=== PATIENT | male | born 1970 | race Asian ===

== ENCOUNTER → 2020-01-19 16:29 | Outpatient (BNVA) | payer OTHER, SELFPAY | PROVIDERS: Visit Provider Nurse Practitioner | DX: Z11.59 Encounter for screening for other viral diseases (principal) | CPT/HCPCS: 87635 ==

== ENCOUNTER → 2020-11-30 10:54 | Outpatient (BNVA) | payer OTHER, SELFPAY | PROVIDERS: Visit Provider Internal Medicine Cardiovascular Disease | DX: R07.89 Other chest pain (principal); R06.02 Shortness of breath; E78.5 Hyperlipidemia, unspecified; R07.9 Chest pain, unspecified | CPT/HCPCS: 80061 ==

== ENCOUNTER 2020-12-28 06:33 | Outpatient (CLI) | payer OTHER, SELFPAY ==
--- NOTE | 2020-12-28 06:50 | ECG_ITS ---
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 Interpretive Statements NAME OF STUDY: EXERCISE SESTAMIBI STRESS TEST INDICATION: Chest Pain, PROCEDURE: The baseline electrocardiogram showed normal sinus rhythm with normal ST-Ts. At the baseline, the patient's blood pressure was 129/75 mm Hg with a heart rate of 45. The patient exercised for 14 minutes and 17 seconds on a standard [place] protocol. Patient attained a maximum heart rate of 164 beats per minute(97% of the maximum predicted heart rate) with a blood pressure at the peak exercise of 192/79 mm Hg. The EKG at the peak exercise revealed [address]ressions in lead II, III, aVF and V5 to V6. Patient did not have any chest pain or any significant arrhythmis with the exercise Sestamibi was injected 1 minute prior to the peak exercise During the recovery phase, there were no new changes. Blood pressure at the end of the recovery phase was 134/84 mm Hg with a heart rate of 89 per minute. CONCLUSION: 1. Abnormal EKG response to treadmill exercise, suggesting inferolateral ischemia. 2. No exercise-induced chest pain or cardiac arrhythmia. Hypertensive response to exercise 3. Good exercise tolerance, attained a maximum of 17.2 METs 4. Sestamibi/Sestamibi perfusion results pending; see separate report. Electronically Signed On 01-06-2021 8:07:08 CDT by Nichole Bernal M.D. [id number]
--- NOTE | 2020-12-28 06:50 | NMCV_ITS ---
NM jasmin perf SPECT r/s* [id number] Sergio Leija Age: 50 Gender: M : 1970 Exam Date: 12/28/2020 07:57 Ordering Phys: Nichole Bernal MD ([email or web address]) Technologist: OLIVERIO Rodriguez Exam Location: [facility] Indications: SHORTNESS OF BREATH STRESS TEST [facility] IMAGE PROTOCOL Rest/Stress 1 Exercise Day Radiopharmaceutical Dose (mCi) Administration Site Administered by Rest: Tc-99m 10.8 IV OLIVERIO Lundberg Sestamibi Stress:Tc-99m 32.8 IV OLIVERIO Lundberg Sestamibi Rest: 28-Dec-2020 60 Discovery 630 Stress: 28-Dec-2020 15 Discovery 630 Radiopharmaceutical was injected at 94 % maximum heart rate. Images obtained in supine and prone position. SPECT RESULTS Technical Quality: Excellent Raw Data Analysis: Normal Image Corrections: No attenuation or motion correction applied Summed Stress Score: 0 Summed Rest Score: 2 Summed Difference Score: 0 PERFUSION FINDINGS Areas of slightly decreased tracer uptake were noted in the anterior wall and inferior wall regions with no reversibility FUNCTIONAL RESULTS (calculated via Gated SPECT) Stress Image LV EF (%): 72 Stress EDV (mL):74 TID: 0.77 Stress ESV (mL):21 FUNCTIONAL FINDINGS: Segmental wall motion analysis revealing no gross wall motion normalities IMPRESSIONS 1. Myocardial perfusion imaging revealing small areas of slightly decreased persistent tracer uptake in the anterior wall and inferior wall regions, suggestive of myocardial scarring versus attenuation artifacts. 2. Normal LV ejection fraction of 72%. 3. LV wall motion analysis revealing no gross wall motion normalities. 4. Normal LV volume. No significant coronary ischemia, based on the above findings Dr Nichole Bernal MD FACC (Electronically Signed) Final Date: 28 December 2020 23:11 S
[2020-12-28 06:52] VITALS: BMI 25.0
[2020-12-28 10:22] VITALS: BP 134/84; PULSE 90
== END 2020-12-28 06:34 | disposition home or self-care (01) ==
LOC: RAD 06:35 → CDL 06:50
PROVIDERS: Visit Provider Internal Medicine Cardiovascular Disease
DX: R07.9 Chest pain, unspecified (principal); R06.02 Shortness of breath
CPT/HCPCS: 78452; 93017; A9500

== ENCOUNTER → 2021-10-12 10:35 | Outpatient (BNVA) | payer MEDICAID, SELFPAY | PROVIDERS: Visit Provider Internal Medicine Cardiovascular Disease | DX: I25.118 Atherosclerotic heart disease of native coronary artery with other forms of angina pectoris (principal); R03.0 Elevated blood-pressure reading, without diagnosis of hypertension; E78.5 Hyperlipidemia, unspecified | CPT/HCPCS: 99214 ==

== ENCOUNTER 2021-11-01 08:07 | Outpatient (CLI) | payer OTHER, SELFPAY ==
[2021-11-01 08:44] LABS: Chol HDL Ratio 3.12 mg/dL (1.0-5.00); Cholesterol 159 mg/dL (0-200); HDL Cholesterol 51 mg/dL (60-100); LDL Cholesterol Calculated 82 mg/dL (50-129); LDL HDL Ratio 1.61 RATIO (0.00-3.22); Triglycerides 132 mg/dL (0-150)
== END 2021-11-01 08:08 | disposition home or self-care (01) ==
LOC: LAB 08:10
PROVIDERS: Visit Provider Internal Medicine Cardiovascular Disease
DX: E78.5 Hyperlipidemia, unspecified (principal)
CPT/HCPCS: 36415; 80061

== ENCOUNTER → 2022-10-09 08:14 | Outpatient (BNVA) | payer OTHER, SELFPAY | PROVIDERS: Visit Provider Family Medicine | DX: I10 Essential (primary) hypertension (principal); I25.10 Atherosclerotic heart disease of native coronary artery without angina pectoris; E78.5 Hyperlipidemia, unspecified; Z12.11 Encounter for screening for malignant neoplasm of colon; Z12.12 Encounter for screening for malignant neoplasm of rectum | CPT/HCPCS: 80053; 80061; 84439; 84443; 85025 ==

== ENCOUNTER → 2023-10-10 11:09 | Outpatient (BNVA) | payer OTHER, SELFPAY | PROVIDERS: PCP Family Medicine; Visit Provider Internal Medicine Cardiovascular Disease | DX: I10 Essential (primary) hypertension (principal); E78.5 Hyperlipidemia, unspecified; J02.0 Streptococcal pharyngitis | CPT/HCPCS: 36415; 80061; 80076 ==

== ENCOUNTER 2023-11-20 07:14 | Outpatient (CLI) | payer OTHER, SELFPAY ==
[2023-11-20 08:02] LABS: Alanine Aminotransferase 23 U/L (0-41); Albumin Level 4.8 g/dL (3.5-5.2); Alkaline Phosphatase 106 U/L (40-130); Aspartate Amino Transferase 11 U/L (0-40); Chol HDL Ratio 3.62 mg/dL (1.0-5.00); Cholesterol 163 mg/dL (0-200); Globulin 1.9 g/dL (1.3-4.6); HDL Cholesterol 45 mg/dL (60-100); LDL Cholesterol Calculated 56 mg/dL (50-129); LDL HDL Ratio 1.24 RATIO (0.00-3.22); Total Bilirubin 0.2 mg/dL (0.15-1.2); Total Protein 6.7 g/dL (6.6-8.7); Triglycerides 311 mg/dL (0-150)
== END 2023-11-20 07:15 | disposition home or self-care (01) ==
LOC: LAB 07:14
PROVIDERS: PCP Family Medicine; Visit Provider Internal Medicine Cardiovascular Disease
DX: E78.5 Hyperlipidemia, unspecified (principal)
CPT/HCPCS: 36415; 80061; 80076

== ENCOUNTER 2024-01-28 06:59 | Outpatient (CLI) | payer OTHER, SELFPAY ==
[2024-01-28 08:42] LABS: Chol HDL Ratio 3.16 mg/dL (1.0-5.00); Cholesterol 158 mg/dL (0-200); HDL Cholesterol 50 mg/dL (60-100); LDL Cholesterol Calculated 86 mg/dL (50-129); LDL HDL Ratio 1.72 RATIO (0.00-3.22); Triglycerides 112 mg/dL (0-150)
== END 2024-01-28 07:00 | disposition home or self-care (01) ==
LOC: LAB 07:00
PROVIDERS: PCP Family Medicine; Visit Provider Internal Medicine Cardiovascular Disease
DX: E78.5 Hyperlipidemia, unspecified (principal)
CPT/HCPCS: 36415; 80061

== ENCOUNTER → 2024-07-29 08:35 | Outpatient (BNVA) | payer OTHER, SELFPAY | PROVIDERS: PCP Family Medicine; Visit Provider Family Medicine | DX: I25.10 Atherosclerotic heart disease of native coronary artery without angina pectoris (principal); Z12.5 Encounter for screening for malignant neoplasm of prostate; I10 Essential (primary) hypertension; E78.5 Hyperlipidemia, unspecified | CPT/HCPCS: 80053; 80061; 84153; 85025 ==